=== PATIENT | female | born 1995 | race Caucasian/White ===

== ENCOUNTER 2017-06-20 22:21 | Emergency (ER) | payer MEDICAID ==
[~2017-06-20] VITALS: Ht 162.6 cm; Wt 50.0 kg
[~2017-06-20 22:21] MED LIST: FLUO20
[2017-06-20 22:34] VITALS: BP 142/82; PULSE 121; RESP 19; TEMP 99.8; O2SAT 100
[2017-06-20] MEDS ORDERED: SODIUM CHLOR 0.9% 1000 ML INJ 1,000 ML IV ONE ×2 (22:45)
[2017-06-20] MEDS ORDERED: ONDANSETRON HCL 4 MG/2 ML VIAL IV PUSH ONE (22:45)
[2017-06-20] MEDS ORDERED: KETOROLAC TROMETHAMINE 30 MG/ML (IVP) VIAL IV PUSH ONE (22:45)
[2017-06-20] MEDS ORDERED: OSEL75 PO (23:15)
--- NOTE | 2017-06-20 23:15 | PD ---
HPI Chief Complaint: Cold / Flu Symptoms Time Seen by Provider: 22:36 Travel History International Travel<30 days: No Contact w/Intl Traveler<30days: No Traveled to known affect area: No History of Present Illness HPI 22 year-old woman with flulike symptoms for the past several days, worsening today, high fever, cough cold congestion, some sore throat, no nausea or vomiting, no abdominal pain, she does have diffuse myalgias muscle aches and headache. No definite sick contacts. She otherwise well and healthy. Symptoms worsening since onset, constant. History Past Medical History Medical History: Denies Significant Hx LMP: CURRENTLY Past Surgical History Surgical History: No Previous Surgery Social History Alcohol Use: No Tobacco Use: No Allergies-Medications (Allergen,Severity, Reaction): Coded Allergies: No Known Allergies (Unverified , 07/29/12) Reported Meds & Prescriptions Reported Meds & Active Scripts Active Tamiflu (Oseltamivir Phosphate) 75 Mg Cap 75 Mg PO BID 5 Days Reported Prozac 20 Mg Cap (Fluoxetine HCl) 20 Mg Cap 20 Mg .XX DAILY 0700 Review of Systems Except as stated in HPI: all other systems reviewed are Neg Physical Exam Narrative GENERAL: 22 year-old woman, looks a little bit ill, skin ti is hot me, wet. SKIN: Hot, wet HEAD: Atraumatic. Normocephalic. EYES: Pupils equal and round. No scleral icterus. No injection or drainage. ENT: No nasal bleeding or discharge. Mucous membranes pink and moist. Little bit of pharyngeal erythema. No tonsillar hypertrophy or exudates. NECK: Trachea midline. No JVD. CARDIOVASCULAR: Regular rate and rhythm. No murmur appreciated. RESPIRATORY: No accessory muscle use. Clear to auscultation. Breath sounds equal bilaterally. GASTROINTESTINAL: Abdomen soft, non-tender, nondistended. Hepatic and splenic margins not palpable. MUSCULOSKELETAL: No obvious deformities. No edema. NEUROLOGICAL: Awake and alert. No obvious cranial nerve deficits. Motor grossly within normal limits. Normal speech. PSYCHIATRIC: Appropriate mood and affect; insight and judgment normal. Data Data Last Documented VS Vital Signs Date Time Temp Pulse Resp B/P (MAP) Pulse Ox O2 Delivery O2 Flow Rate FiO2 06/20/17 22:34 99.8 121 19 142/82 (102) 100 Orders Orders Ketorolac Inj (Toradol Inj) (06/20/17 22:45) Ondansetron Inj (Zofran Inj) (06/20/17 22:45) Sodium Chlor 0.9% 1000 Ml Inj (Ns 1000 M (06/20/17 22:45) Sodium Chlor 0.9% 1000 Ml Inj (Ns 1000 M (06/20/17 22:45) Influenzae A/B Antigen (06/20/17 22:36) MDM Medical Decision Making Medical Screen Exam Complete: Yes Emergency Medical Condition: Yes Interpretation(s) Influenza negative. Differential Diagnosis [place], flu, viral syndrome, pneumonia, other Narrative Course Medical decision-making This 22 year-old woman, appears uncomfortable, but typical for INDIO. On exams unremarkable without evidence of pneumonia. She has not looked toxic. She'll be treated supportively. We'll check an influenza. Diagnosis Primary Impression: Influenza-like illness Additional Instructions: Take Tamiflu as prescribed. Take acetaminophen or ibuprofen as a for fever or body aches. You can return to work after you have had no fever for 24 hours. Drink plenty of fluids to stay well-hydrated. Follow-up with your primary doctor if you are not completely well in 7-10 days. Return to the emergency department for any worsening chest pain, trouble breathing, or any other new or worsening symptoms. Med/Other Pt SpecificInfo: Prescription(s) given Scripts Oseltamivir (Tamiflu) 75 Mg Cap 75 MG PO BID for Mgmt Viral Infection for 5 Days, #10 CAP 0 Refills Prov: Elliott Gale MD 06/20/17 Disposition: 01 DISCHARGE HOME Condition: Stable Elliott Gale MD Jun 20, 2017 23:15
== END 2017-06-21 01:02 | disposition home or self-care (01) ==
LOC: NEPE 22:21
DX: J11.1 Influenza due to unidentified influenza virus with other respiratory manifestations (principal)
CPT/HCPCS: 87804; 96361; 96374; 96375; 99284; J1885; J2405; J7030

== ENCOUNTER 2017-06-22 17:16 | Emergency (ER) | payer MEDICAID ==
[~2017-06-22 17:16] MED LIST changes: +OSEL75 PO
[2017-06-22 17:19] VITALS: BP 136/81; PULSE 110; RESP 14; TEMP 98.2; O2SAT 98
[2017-06-22 17:37] VITALS: BP 132/74; PULSE 90; RESP 18; TEMP 99.3; O2SAT 100
[2017-06-22 18:00] VITALS: BP_SYST 123; BP_SYST 125; BP_SYST 131; BP_DIAS 73; BP_DIAS 74; BP_DIAS 78; RESP 18; RESP 20
[2017-06-22] MEDS ORDERED: SODIUM CHLORIDE 0.9% FLUSH 10 ML FLUSH IV FLUSH PRN (18:00)
[2017-06-22] MEDS ORDERED: LIDOCAINE VISCOUS 2% SOLN 15 ML UDC PO ONE (18:00)
[2017-06-22] MEDS ORDERED: ALUMINUM/MAGNESIUM/SIMETH 30 ML CUP PO ONE (18:00)
[2017-06-22 18:31] LABS: AUTOMATED NEUTROPHIL # 10.8 TH/MM3 (1.8-7.7); BASOPHIL % 0.3 % (0.0-2.0); EOSINOPHIL % 0.3 % (0.0-4.0); HEMATOCRIT 35.3 % (35.0-46.0); HEMOGLOBIN 11.8 GM/DL (11.6-15.3); LYMPH % 13.5 % (9.0-44.0); LYMPHOCYTE # 1.8 TH/MM3 (1.0-4.8); MEAN CELL VOLUME 85.8 FL (80.0-100.0); MEAN CORPUSCULAR HEMOGLOBIN 28.7 PG (27.0-34.0); MEAN CORPUSCULAR HGB CONC 33.4 % (32.0-36.0); MEAN PLATELET VOLUME 8.5 FL (7.0-11.0); MONO % 6.3 % (0.0-8.0); MONOCYTE # 0.9 TH/MM3 (0-0.9); NEUT % 79.6 % (16.0-70.0); PLATELET COUNT 283 TH/MM3 (150-450); RED BLOOD COUNT 4.12 MIL/MM3 (4.00-5.30); RED CELL DISTRIBUTION WIDTH 13.9 % (11.6-17.2); WHITE BLOOD COUNT 13.6 TH/MM3 (4.0-11.0)
[2017-06-22 18:47] LABS: ALBUMIN 3.2 GM/DL (3.4-5.0); AST (GOT) 18 U/L (16-38); BICARBONATE 27.1 MEQ/L (21.0-32.0); BLOOD UREA NITROGEN 3 MG/DL (7-18); CALCIUM 8.4 MG/DL (8.5-10.1); CHLORIDE 107 MEQ/L (98-107); CREATININE 0.72 MG/DL (0.50-1.00); GLOMERULAR FILTRATION RATE 103 ML/MIN (>89); GLUCOSE,RANDOM 86 MG/DL (74-106); LIPASE 85 U/L (73-393); SODIUM (NA) 142 MEQ/L (136-145)
[2017-06-22 18:48] LABS: ALT (GPT) 18 U/L (9-42)
[2017-06-22 18:50] LABS: ALKALINE PHOSPHATASE 64 U/L (45-117); TOTAL BILIRUBIN ADULT 0.4 MG/DL (0.2-1.0); TOTAL PROTEIN 6.9 GM/DL (6.4-8.2)
--- NOTE | 2017-06-22 19:12 | PD ---
HPI . Epigastric pain Chief Complaint: Medical Clearance Time Seen by Provider: 17:42 Travel History International Travel<30 days: No Contact w/Intl Traveler<30days: No Traveled to known affect area: No History of Present Illness HPI This patient presents with a chief complaint of epigastric pain. Onset was 2 days ago. It is getting progressively worse. It is unrelieved by Tylenol and ibuprofen. She has not tried an antacid. This patient has several other complaints including continued flulike symptoms and vaginal bleeding associated with her menstrual cycle. She states that the bleeding is heavier than usual. PFSH Past Medical History Medical History: Denies Significant Hx ADHD: No Cancer: No Cardiovascular Problems: No Diabetes: No Psychiatric: No Immunizations Current: Yes Migraines: No Seizures: No Thyroid Disease: No Ulcer: No Tetanus Vaccination: < 5 Years Influenza Vaccination: Yes (3 weeks ago) ?: Not LMP: CURRENT : 0 Past Surgical History Surgical History: No Previous Surgery Other Surgery: No Social History Alcohol Use: No Tobacco Use: No Substance Use: No Allergies-Medications (Allergen,Severity, Reaction): Coded Allergies: No Known Allergies (Unverified Adverse Reaction, Unknown, 06/22/17) Reported Meds & Prescriptions Reported Meds & Active Scripts Active Tamiflu (Oseltamivir Phosphate) 75 Mg Cap 75 Mg PO BID 5 Days Review of Systems Except as stated in HPI: all other systems reviewed are Neg General / Constitutional: Positive: Fever (last fever was 2 days ago. MAXIMUM TEMPERATURE was 101.7.) HENT: Positive: Rhinorrhea, Congestion Gastrointestinal: Positive: Abdominal Pain, No: Nausea, Vomiting, Diarrhea Genitourinary: Positive: Vaginal Bleeding, No: Urgency, Frequency, Dysuria, Decreased Urinary Output Physical Exam Narrative GENERAL: Patient is awake and alert and in no distress. She has been observed sitting on her stretcher using her cell phone while awaiting her workup stress. SKIN: warm/dry. Good color and turgor. HEAD: Normocephalic. Atraumatic. EYES: Pupils equal and round. No scleral icterus. No injection or drainage. ENT: No nasal bleeding or discharge. Mucous membranes pink and moist. NECK: Trachea midline. Full range of motion without pain.. CARDIOVASCULAR: Regular rate and rhythm. Heart sounds are normal. RESPIRATORY: No accessory muscle use. Clear to auscultation. Breath sounds equal bilaterally. GASTROINTESTINAL: Abdomen soft. Minimal epigastric tenderness. No guarding or rebound. Bowel sounds present. Nondistended. MUSCULOSKELETAL: No obvious deformities. NEUROLOGICAL: Awake and alert. No obvious cranial nerve deficits. Motor grossly within normal limits. Normal speech. PSYCHIATRIC: Appropriate mood and affect; insight and judgment normal. Data Data Last Documented VS Vital Signs Date Time Temp Pulse Resp B/P (MAP) Pulse Ox O2 Delivery O2 Flow Rate FiO2 06/22/17 18:00 88 18 125/74 (91) 89 20 131/78 (95) 110 20 123/73 (90) 06/22/17 17:37 99.3 100 Room Air Orders Orders Orthostatic Vital Signs (06/22/17 17:43) Complete Blood Count With Diff (06/22/17 17:57) Comprehensive Metabolic Panel (06/22/17 17:57) Lipase (06/22/17 17:57) Iv Access Insert/Monitor (06/22/17 17:57) Ecg Monitoring (06/22/17 17:57) Oximetry (06/22/17 17:57) Sodium Chloride 0.9% Flush (Ns Flush) (06/22/17 18:00) Al-Mag Hy-Si 40-40-4 Mg/Ml Liq (Mag-Al P (06/22/17 18:00) Lidocaine 2% Viscous (Xylocaine 2% Visco (06/22/17 18:00) Ed Urine Pregnancytest Poc (06/22/17 17:57) Labs Laboratory Tests Test 06/22/17 18:10 White Blood Count 13.6 TH/MM3 Red Blood Count 4.12 MIL/MM3 Hemoglobin 11.8 GM/DL Hematocrit 35.3 % Mean Corpuscular Volume 85.8 FL Mean Corpuscular Hemoglobin 28.7 PG Mean Corpuscular Hemoglobin Concent 33.4 % Red Cell Distribution Width 13.9 % Platelet Count 283 TH/MM3 Mean Platelet Volume 8.5 FL Neutrophils (%) (Auto) 79.6 % Lymphocytes (%) (Auto) 13.5 % Monocytes (%) (Auto) 6.3 % Eosinophils (%) (Auto) 0.3 % Basophils (%) (Auto) 0.3 % Neutrophils # (Auto) 10.8 TH/MM3 Lymphocytes # (Auto) 1.8 TH/MM3 Monocytes # (Auto) 0.9 TH/MM3 Eosinophils # (Auto) 0.0 TH/MM3 Basophils # (Auto) 0.0 TH/MM3 CBC Comment DIFF FINAL Differential Comment Blood Urea Nitrogen 3 MG/DL Creatinine 0.72 MG/DL Random Glucose 86 MG/DL Total Protein 6.9 GM/DL Albumin 3.2 GM/DL Calcium Level 8.4 MG/DL Alkaline Phosphatase 64 U/L Aspartate Amino Transf (AST/SGOT) 18 U/L Alanine Aminotransferase (ALT/SGPT) 18 U/L Total Bilirubin 0.4 MG/DL Sodium Level 142 MEQ/L Potassium Level 3.3 MEQ/L Chloride Level 107 MEQ/L Carbon Dioxide Level 27.1 MEQ/L Anion Gap 8 MEQ/L Estimat Glomerular Filtration Rate 103 ML/MIN Lipase 85 U/L MDM Medical Decision Making Medical Screen Exam Complete: Yes Emergency Medical Condition: Yes Medical Record Reviewed: Yes (patient seen here 2 days ago with flulike symptoms. She had a flu test which was negative. She was given a prescription for Tamiflu. She admits that she has not had that filled.) Differential Diagnosis Differential diagnosis of abdominal pain includes but is not limited to gastritis, pancreatitis, hepatitis, gastroenteritis, gallbladder disease, constipation, urinary retention, UTI, peptic ulcer disease, diverticulitis or appendicitis Narrative Course This patient presents with epigastric pain. Her physical exam is reassuring. test was done and was negative. CBC & BMP Diagram 06/22/17 18:10 Total Protein 6.9, Albumin 3.2 L, Calcium Level 8.4 L, Alkaline Phosphatase 64, Aspartate Amino Transf (AST/SGOT) 18, Alanine Aminotransferase (ALT/SGPT) 18, Total Bilirubin 0.4 No significant etiology for her epigastric pain was determined. The history, exam, diagnostic testing, and current condition do not suggest any significant pathology to warrant further testing, continued ED treatment, admission, or surgical evaluation at this point. No EMC was found. The patient 's condition is stable and appropriate for discharge. Diagnosis Primary Impression: Epigastric pain Patient Instructions: Epigastric Pain (ED), General Instructions Additional Instructions: Use an kiqp-soj-mxuxlyk antacid such as Maalox, Tums or Rolaids. You may also take an [id number]-[id number] acid pipelines superintendent such as Tagamet, Zantac, Pepcid, Prilosec Disposition: 01 DISCHARGE HOME Condition: Stable Halie Steve MD Jun 22, 2017 19:12
[2017-06-23] MEDS ORDERED: AMOX500T PO (18:51)
== END 2017-06-22 19:31 | disposition home or self-care (01) ==
LOC: NEPD 17:16
DX: R10.13 Epigastric pain (principal)
CPT/HCPCS: 80053; 83690; 84703; 85025; 99283

== ENCOUNTER 2017-06-23 17:45 | Emergency (ER) | payer MEDICAID ==
[~2017-06-23] VITALS: Ht 154.9 cm; Wt 61.0 kg
[~2017-06-23 17:45] MED LIST changes: -FLUO20
[2017-06-23 17:48] VITALS: BP 123/93; PULSE 87; RESP 16; TEMP 98.7; O2SAT 99
[2017-06-23] MEDS ORDERED: AMOX500T PO (18:51)
--- NOTE | 2017-06-23 18:52 | PD ---
HPI Chief Complaint: ENT Complaint Time Seen by Provider: 18:29 Travel History International Travel<30 days: No Contact w/Intl Traveler<30days: No Traveled to known affect area: No History of Present Illness HPI 22-year-old female with left ear pain times one day. Associated with sore throat. Denies fever or chills. Symptoms severity is moderate. No aggravating or alleviating factors. PFSH Past Medical History Medical History: Denies Significant Hx ADHD: No Cancer: No Cardiovascular Problems: No Diabetes: No Diminished Hearing: No Psychiatric: No Immunizations Current: Yes Migraines: No Seizures: No Thyroid Disease: No Ulcer: No Tetanus Vaccination: Unknown ?: Not LMP: 06/19/17 : 0 Past Surgical History Other Surgery: No Social History Alcohol Use: No Tobacco Use: No Substance Use: No Allergies-Medications (Allergen,Severity, Reaction): Coded Allergies: No Known Allergies (Unverified Adverse Reaction, Unknown, 06/23/17) Reported Meds & Prescriptions Reported Meds & Active Scripts Active Amoxicillin 500 Mg Tab 500 Mg PO TID 10 Days Review of Systems Except as stated in HPI: all other systems reviewed are Neg General / Constitutional: No: Fever HENT: Positive: Earache Physical Exam Narrative GENERAL: Alert well-appearing female. SKIN: Warm and dry. HEAD: Normocephalic. EYES: No injection or drainage. EAR: TM erythema, bulging, loss of landmarks THROAT: Mild pharyngeal erythema with mild tonsillar hypertrophy no exudate. NECK: Supple, trachea midline. No JVD or lymphadenopathy. No meningismus. CARDIOVASCULAR: Regular rate and rhythm without murmurs, gallops, or rubs. RESPIRATORY: Breath sounds equal bilaterally. No accessory muscle use. GASTROINTESTINAL: Abdomen soft, non-tender, nondistended. MUSCULOSKELETAL: No cyanosis, or edema. Data Data Last Documented VS Vital Signs Date Time Temp Pulse Resp B/P (MAP) Pulse Ox O2 Delivery O2 Flow Rate FiO2 06/23/17 17:48 98.7 87 16 123/93 (103) 99 Orders Orders Ed Discharge Order (06/23/17 18:53) MDM Medical Decision Making Medical Screen Exam Complete: Yes Emergency Medical Condition: Yes Differential Diagnosis Otitis media, otitis externa, pharyngitis Narrative Course 22 -year-old female with left ear pain 1 day. On exam she has TM erythema, bulging, loss of landmarks. She is nontoxic appearing. Vital signs are stable. She'll be treated for otitis media. Diagnosis Primary Impression: Otitis media Qualified Codes: H66.90 - Otitis media, unspecified, unspecified ear Referrals: Primary Care Physician Additional Instructions: Take [id number] Tylenol or ibuprofen as needed for pain. Scripts Amoxicillin (Amoxicillin) 500 Mg Tab 500 MG PO TID for Infection for 10 Days, TAB 0 Refills Prov: Erin Romero 06/23/17 Disposition: 01 DISCHARGE HOME Condition: Stable Erin Romero Jun 23, 2017 18:51
== END 2017-06-23 19:01 | disposition home or self-care (01) ==
LOC: PHED 17:45 → PHEFT 19:01
DX: H66.92 Otitis media, unspecified, left ear (principal); J02.9 Acute pharyngitis, unspecified
CPT/HCPCS: 99283